=== PATIENT | female | born 1930 | race Caucasian/White ===

== ENCOUNTER 2016-08-17 11:48 | Emergency (ER) | payer MEDICARE, MEDICAID ==
[~2016-08-17] VITALS: Ht 147.3 cm; Wt 53.1 kg
[~2016-08-17 11:48] MED LIST: DONE5TAB11 PO; FER325T PO; QUET25TA46 PO
[2016-08-17] MEDS ORDERED: LORazepam 2MG/ML-1ML VIAL IM ONE (17:00)
[2016-08-17 18:01] VITALS: BP 144/75
== END 2016-08-17 19:56 | disposition home or self-care (01) ==
LOC: ER 11:48
DX: S00.03XA Contusion of scalp, initial encounter (principal); G30.8 Other Alzheimer's disease; F02.80 Dementia in other diseases classified elsewhere, unspecified severity, without behavioral disturbance, psychotic disturbance, mood disturbance, and anxiety; K21.9 Gastro-esophageal reflux disease without esophagitis; E78.5 Hyperlipidemia, unspecified; I10 Essential (primary) hypertension; E07.89 Other specified disorders of thyroid; Z90.710 Acquired absence of both cervix and uterus; Z90.49 Acquired absence of other specified parts of digestive tract; Z90.89 Acquired absence of other organs; Z88.6 Allergy status to analgesic agent; Z88.8 Allergy status to other drugs, medicaments and biological substances; W19.XXXA Unspecified fall, initial encounter; Y93.89 Activity, other specified; Y99.8 Other external cause status; Y92.89 Other specified places as the place of occurrence of the external cause
CPT/HCPCS: 70450; 96372; 99284; J2060